=== PATIENT | female | born 1980 | race Caucasian/White ===

== ENCOUNTER → 2020-03-16 | Outpatient (CLI) | payer OTHER ==
[~2020-03-16] VITALS: Ht 160 cm; Wt 57.6 kg
[~2020-03-16] MED LIST: ALLEGRA-D 12 H1 EACH PO; BENADRYL 25MG C25 MG PO; CYANOCOBAL1000 MCG/1 INJ; FLONASE 0.05% N16 GM; KLONOPIN1 MG PO; MICRO-K EXTENCA8 MEQ PO; OMEPRAZOLE40 MG PO; TRI-SPRINTEC T1 EACH PO; ULTRAM50 MG PO; VENTOLIN HFA 66.7 GM INH; ZOLOFT100 MG PO
== END ==
LOC: OPSV 13:30
DX: K50.812 Crohn's disease of both small and large intestine with intestinal obstruction (principal)
CPT/HCPCS: 96365; J3380; J7050

== ENCOUNTER → 2020-05-11 | Outpatient (CLI) | payer OTHER ==
[~2020-05-11] VITALS: Ht 160 cm; Wt 57.6 kg
== END ==
LOC: OPSV 11:55
DX: K50.812 Crohn's disease of both small and large intestine with intestinal obstruction (principal)
CPT/HCPCS: 96365; J3380; J7050

== ENCOUNTER → 2020-07-06 | Outpatient (CLI) | payer OTHER ==
[~2020-07-06] VITALS: Ht 160 cm; Wt 57.6 kg
== END ==
LOC: OPSV 11:35
DX: K50.812 Crohn's disease of both small and large intestine with intestinal obstruction (principal)
CPT/HCPCS: 96365; J3380; J7050

== ENCOUNTER → 2020-09-20 | Outpatient (CLI) | payer OTHER ==
[~2020-09-20] VITALS: Ht 160 cm; Wt 57.6 kg
== END ==
LOC: OPSV 11:00
DX: K50.812 Crohn's disease of both small and large intestine with intestinal obstruction (principal)
CPT/HCPCS: 96365; J3380; J7030

== ENCOUNTER → 2020-12-08 | Outpatient (CLI) | payer OTHER ==
[~2020-12-08] VITALS: Ht 160 cm; Wt 57.6 kg
== END ==
LOC: OPSV 09:55
DX: K50.812 Crohn's disease of both small and large intestine with intestinal obstruction (principal)
CPT/HCPCS: 96365; J3380; J7030

== ENCOUNTER → 2021-03-31 | Day surgery (SDC) | payer OTHER ==
[~2021-03-31] MED LIST changes: +ENTYVIO 300 MG300 MG INJ
== END | disposition home or self-care (01) ==
LOC: OR 06:05
DX: D12.3 Benign neoplasm of transverse colon (principal); K50.80 Crohn's disease of both small and large intestine without complications; K64.1 Second degree hemorrhoids; M25.50 Pain in unspecified joint; E78.5 Hyperlipidemia, unspecified; F41.9 Anxiety disorder, unspecified; F17.210 Nicotine dependence, cigarettes, uncomplicated; E66.3 Overweight; Z68.29 Body mass index [BMI] 29.0-29.9, adult; Z88.1 Allergy status to other antibiotic agents; Z88.2 Allergy status to sulfonamides; Z88.6 Allergy status to analgesic agent; Z88.8 Allergy status to other drugs, medicaments and biological substances; Z79.1 Long term (current) use of non-steroidal anti-inflammatories (NSAID); Z79.899 Other long term (current) drug therapy
CPT/HCPCS: 36415; 84703; J2704; J7040

== ENCOUNTER → 2021-04-18 | Outpatient (CLI) | payer OTHER ==
[~2021-04-18] VITALS: Ht 160 cm; Wt 57.6 kg
== END ==
LOC: OPSV 12:00
DX: K50.812 Crohn's disease of both small and large intestine with intestinal obstruction (principal)
CPT/HCPCS: 96365; J3380; J7050

== ENCOUNTER → 2021-06-14 | Outpatient (CLI) | payer OTHER ==
[~2021-06-14] VITALS: Ht 160 cm; Wt 57.6 kg
== END ==
LOC: OPSV 11:53
DX: K50.812 Crohn's disease of both small and large intestine with intestinal obstruction (principal)
CPT/HCPCS: 96365; J3380; J7050

== ENCOUNTER → 2021-08-09 | Outpatient (CLI) | payer OTHER ==
[~2021-08-09] VITALS: Ht 160 cm; Wt 57.6 kg
== END ==
LOC: OPSV 11:23
DX: K50.812 Crohn's disease of both small and large intestine with intestinal obstruction (principal)
CPT/HCPCS: 96365; J3380; J7050

== ENCOUNTER → 2021-10-04 | Outpatient (CLI) | payer OTHER ==
[~2021-10-04] VITALS: Ht 160 cm; Wt 57.6 kg
== END ==
LOC: OPSV 10:13
DX: K50.812 Crohn's disease of both small and large intestine with intestinal obstruction (principal)
CPT/HCPCS: 96365; J3380; J7050